=== PATIENT | female | born 1985 | race Caucasian/White ===

== ENCOUNTER 2018-04-03 22:59 | Outpatient (CLI) | payer OTHER ==
[~2018-04-03] VITALS: Ht 170.2 cm; Wt 82.5 kg
[2018-04-03 22:56] VITALS: BP 104/82; PULSE 82; RESP 20
[2018-04-03 23:05] VITALS: Ht 170.2 cm; Wt 82.5 kg
[2018-04-04] MEDS ORDERED: PREN-93 PO (00:16)
[2018-04-04] MEDS ORDERED: ACETAMINOPHEN 500 MG TAB PO ONE (00:41)
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
== END 2018-04-04 02:03 | disposition home or self-care (01) ==
LOC: L-D 22:59 → OBT 22:59
PROVIDERS: ATTEND Obstetrics & Gynecology
DX: O9A.213 Injury, poisoning and certain other consequences of external causes complicating pregnancy, third trimester (principal); R10.2 Pelvic and perineal pain; Z3A.38 38 weeks gestation of pregnancy
CPT/HCPCS: 76818; 85460; 86850; 86870; 86900; 86901; Z7610; G0463